=== PATIENT | female | born 1970 | race Caucasian/White ===

== ENCOUNTER 2016-08-05 20:20 | Emergency (ER) | payer BC ==
[2016-08-05] MEDS ORDERED: traMADol HCl 50 MG TAB ONE (20:54)
--- NOTE | 2016-08-05 21:53 | ERRECORD ---
[facility] EMERGENCY RECORD HPI SHOULDER (20:53 JLOY) CHIEF COMPLAINT: Patient presents for evaluation of Pt with a few weeks of right shoulder pain. Started on top of shoulder but now reaching down the side to mid upper arm. Hurts to move and lift. No distal symptoms. No Neuro symptoms. Pt remembers falling and catching herself with her right arm overhead a little while before this started. HISTORIAN: History provided by patient. MECHANISM OF INJURY: Known mechanism, Mechanism of injury: Body motion. LOCATION: Symptoms are generalized. QUALITY: Pain is dull in nature. TIME COURSE: Gradual onset of symptoms, Symptoms are worsening, are constant. ASSOCIATED WITH: No associated decreased range of motion, No associated decreased use, No associated distal neuro complaint, No associated elbow pain, No associated hand pain, No associated swelling, No associated wrist pain, No associated weakness distal to injury. EXACERBATED BY: Patient's condition exacerbated by movement. RELIEVED BY: Patient's condition relieved by rest. ROS (20:55 JLOY) CONSTITUTIONAL: Historian denies chills, denies fever. MUSCULOSKELETAL: Historian denies back pain, denies deformity, reports injury, denies neck pain. SKIN: Historian denies rash. NEUROLOGIC: Historian denies paralysis, denies paresthesias, denies sensory changes. PAST MEDICAL HISTORY MEDICAL HISTORY: Flu vaccine not up to date, Tetanus not up to date, Pneumococcal vaccine not up to date, Notes: anemia, Past medical history includes gastrointestinal disease, gastroesophageal reflux disease, Past medical history includes genitourinary history, urinary tract infection, Past medical history includes history of obesity, Past medical history includes neurological disease, migraine headaches, Hypothyriodism. (20:36 LK[facility]) FEMALE SURGICAL HISTORY: Surgical history of cholecystectomy, Surgical history of section, Surgical history of gastric bypass. (20:36 [facility]) PSYCHIATRIC HISTORY: Psychiatric history includes, anxiety, bipolar disorder, depression, Notes: RECENTLY DX WITH BIPOLAR 6 MONTHS AGO. (20:36 [facility]) SOCIAL HISTORY: Patient drinks socially, rarely, Patient is a former drug user, Drug history notes: "OVER 18 YEARS AGO", Patient is a former tobacco user, smoked cigarettes, Patient quit smoking more than 10 years ago, Lives at home, alone. (20:36 [facility]) NOTES: Nursing records reviewed, Agree with nursing records. (20:57 JLOY) &a-1R&a+25V*p+0X*[id number]*c202B*c15G*c2P*p-0X&a-25V&a+1R Name: Giselle Gudino : 1970 F45 MedRec: [id number] AcctNum: [id number] Prepared: FriAug 05, 2016 21:10 by Interface Page 1 of 3 pMD [facility] EMERGENCY RECORD KNOWN ALLERGIES Levaquin levofloxacin (Unconfirmed) CURRENT MEDICATIONS levothyroxine: TABLET : Strength - 175 mcg : ORAL Patient Dose: 1 tab(s) Oral once a day (in the morning). (20:31 [facility]) lithium carbonate: CAPSULE : Strength - 300 mg : ORAL Patient Dose: 300 mg Oral 2 times a day. (20:32 [facility]) SEROquel: TABLET : Strength - 100 mg : ORAL Patient Dose: 1 tab(s) Oral once a day (at bedtime). (20:32 [facility]) VITAL SIGNS (20:33 [facility]) VITAL SIGNS: BP: 119/67, Pulse: 56, Resp: 18, Temp: 97.6 (Oral), Pain: 5, O2 sat: 100 on Room Air, Time: 08/05/2016 20:33. PHYSICAL EXAM (20:56 [facility]) CONSTITUTIONAL: Vital Signs Reviewed, Patient appears non toxic, Patient alert and oriented to person, place and time. EYES: Eye exam included findings of eyelids normal to inspection, Pupils equally round and reactive to light, Conjunctiva normal. NECK: Neck exam included findings of normal range of motion, no tenderness. RESPIRATORY CHEST: Respiratory exam included findings of no respiratory distress, Chest exam included findings of chest movement symmetrical. BACK: Back exam included findings of normal inspection, range of motion normal, no tenderness. UPPER EXTREMITY: Right clavicle exam normal, Right shoulder exam included findings of, TTP mild-mod right AC joint. Most severe tenderness over ant shoulder. Positive empty can sign., Left shoulder unaffected, Right upper arm exam normal, Right elbow exam normal, Right forearm exam normal, Right wrist exam normal, Right hand exam normal. NEURO: [place] coma scale 15, Neuro exam findings include patient oriented to person, place and time, Speech normal. SKIN: Skin exam included findings of skin warm, dry, and normal in color, no rash. PSYCHIATRIC: Normal affect. MEDICATION ADMINISTRATION SUMMARY Drug Name: traMADol, Dose Ordered: 50 mg, Route: Oral, Status: Ordered, Time: 20:50 08/05/2016, Detailed record available in &a-1R&a+25V*p+0X*[id number]*c202B*c15G*c2P*p-0X&a-25V&a+1R Name: Giselle Gudino : 1970 5 MedRec: [id number] AcctNum: [id number] Prepared: FriAug 05, 2016 21:10 by Interface Page 2 of 3 pMD [facility] EMERGENCY RECORD Medication Service section. PROBLEM LIST No recorded problems DIAGNOSIS (20:52 JABIER) FINAL: PRIMARY: RIGHT shoulder pain. PRESCRIPTION (20:51 JANETTE) traMADol: TABLET : 50 mg : ORAL : Quantity: 1 Unit: tab(s) Route: ORAL Schedule: every 8 hours PRN Dispense: 20 May substitute. Refills: No Refills . NOTES: No Refills. DISPOSITION PATIENT: Disposition Type: Discharge, Disposition: *Discharge Home. (20:52 JABIER) Patient left the department. (21:07 BRE) Michaud: JABIER=MD Camden, Hunter MA=EVLEIA Tijerina, Tamara &a-1R&a+25V*p+0X*[id number]*c202B*c15G*c2P*p-0X&a-25V&a+1R Name: Giselle Gudino : 1970 5 MedRec: [id number] AcctNum: [id number] Prepared: FriAug 05, 2016 21:10 by Interface Page 3 of 3 pMD MTDD
--- NOTE | 2016-08-05 21:57 | PICIS ---
[facility] EMERGENCY RECORD TRIAGE (20:31 LK) TRIAGE NOTES: RIGHT SHOULDER PAIN RADIATING DOWN TO ELBOW. STATES ITS BEEN HURTING "ABOUT A MONTH". UNKNOWN CAUSE. (20:31 LK) PATIENT: NAME: Giselle Gudino, AGE: 45, GENDER: female, : Fri1970, TIME OF GREET: FriAug 05, 2016 20:22, PREFERRED LANGUAGE: Thai, ETHNICITY: Not or , ECODE BILLING MAP: [facility], SSN: [id number], Zip Code: [address], KG WEIGHT: [phone], PHONE: , , , PERSON ID: [id number], PCP: MD Elena Jacques. (20:31 [facility]) COMPLAINT: RT SHOULDER/ARM PAIN,1 MONTH,. (20:31 [facility]) ADMISSION: URGENCY: 4 Non Urgent, ADMISSION SOURCE: Home, TRANSPORT: CAR, BED: ER -05. (20:31 [facility]) PAIN: Patient complains of pain described as, on a scale 0-10 patient rates pain as 5, Location RIGHT SHOULDER, Pain is constant, Onset was 1 MONTH, Notes: RANGES FROM SHARP, SHOOTING TO DULL. (20:36 [facility]) IMMUNIZATIONS: Flu vaccine not up to date, Tetanus not up to date, Pneumococcal vaccine not up to date. (20:36 [facility]) SIRS SCORING: Heart Rate 55-109 (0), Temp range 96.8-101.1 (0), respiratory rate 12-24 (0), Latest WBC 3-14.9 (0), Mental Status altered: no (0). (20:36 [facility]) TRIAGE SCREENING: Patient denies suicidal ideation, Patient denies presence of domestic violence. (20:36 [facility]) TREATMENTS IN PROGRESS: Treatments given Prehospital: NONE. (20:36 [facility]) PROVIDERS: TRIAGE NURSE: Tamara Tijerina RN. (20:31 [facility]) PREVIOUS VISIT ALLERGIES: Levaquin. (20:31 [facility]) Levaquin. (20:36 [facility]) KNOWN ALLERGIES Levaquin levofloxacin (Unconfirmed) CURRENT MEDICATIONS levothyroxine: TABLET : Strength - 175 mcg : ORAL Patient Dose: 1 tab(s) Oral once a day (in the morning). (20:31 [facility]) lithium carbonate: CAPSULE : Strength - 300 mg : ORAL Patient Dose: 300 mg Oral 2 times a day. (20:32 [facility]) SEROquel: TABLET : Strength - 100 mg : ORAL Patient Dose: 1 tab(s) Oral once a day (at bedtime). (20:32 [facility]) &a-1R&a+25V*p+0X*j1485A*c202B*c15G*c2P*p-0X&a-25V&a+1R Name: Giselle Gudino : 1970 F45 MedRec: [id number] AcctNum: [id number] Prepared: FriAug 05, 2016 21:17 by Interface Page 1 of 4 pMD [facility] EMERGENCY RECORD VITAL SIGNS (20:33 [facility]) VITAL SIGNS: BP: 119/67, Pulse: 56, Resp: 18, Temp: 97.6 (Oral), Pain: 5, O2 sat: 100 on Room Air, Time: 08/05/2016 20:33. ORDER DETAILS Order Name: Miscellaneous Nurse Order(s), Status: Done, Time: 20:56 08/05/2016, User: [facility], - Ordered for: MD Hannah Joshua, - Entered by: MD Hannah Joshua - FriAug 05, 2016 20:50, - Quantity: 1. MEDICATION ADMINISTRATION SUMMARY Drug Name: traMADol, Dose Ordered: 50 mg, Route: Oral, Status: Ordered, Time: 20:50 08/05/2016, Detailed record available in Medication Service section. MEDICATION SERVICE (20:50 [facility]) traMADol: Order: traMADol (tramadol HCl) - Dose: 50 mg : Oral Ordered by: Hunter Hannah MD Entered by: Hunter Hannah MD FriAug 05, 2016 20:50 , Acknowledged by: Tamara Tijerina RN FriAug 05, 2016 20:55. HPI SHOULDER (20:53 [facility]) CHIEF COMPLAINT: Patient presents for evaluation of Pt with a few weeks of right shoulder pain. Started on top of shoulder but now reaching down the side to mid upper arm. Hurts to move and lift. No distal symptoms. No Neuro symptoms. Pt remembers falling and catching herself with her right arm overhead a little while before this started. HISTORIAN: History provided by patient. MECHANISM OF INJURY: Known mechanism, Mechanism of injury: Body motion. LOCATION: Symptoms are generalized. QUALITY: Pain is dull in nature. TIME COURSE: Gradual onset of symptoms, Symptoms are worsening, are constant. ASSOCIATED WITH: No associated decreased range of motion, No associated decreased use, No associated distal neuro complaint, No associated elbow pain, No associated hand pain, No associated swelling, No associated wrist pain, No associated weakness distal to injury. EXACERBATED BY: Patient's condition exacerbated by movement. RELIEVED BY: Patient's condition relieved by rest. ROS (20:55 [facility]) CONSTITUTIONAL: Historian denies chills, denies fever. MUSCULOSKELETAL: Historian denies back pain, denies deformity, reports injury, denies neck pain. SKIN: Historian denies rash. &a-1R&a+25V*p+0X*k1906C*c202B*c15G*c2P*p-0X&a-25V&a+1R Name: Giselle Gudino : 1970 F45 MedRec: [id number] AcctNum: [id number] Prepared: FriAug 05, 2016 21:17 by Interface Page 2 of 4 D [facility] EMERGENCY RECORD NEUROLOGIC: Historian denies paralysis, denies paresthesias, denies sensory changes. PAST MEDICAL HISTORY MEDICAL HISTORY: Flu vaccine not up to date, Tetanus not up to date, Pneumococcal vaccine not up to date, Notes: anemia, Past medical history includes gastrointestinal disease, gastroesophageal reflux disease, Past medical history includes genitourinary history, urinary tract infection, Past medical history includes history of obesity, Past medical history includes neurological disease, migraine headaches, Hypothyriodism. (20:36 [facility]) FEMALE SURGICAL HISTORY: Surgical history of cholecystectomy, Surgical history of section, Surgical history of gastric bypass. (20:36 [facility]) PSYCHIATRIC HISTORY: Psychiatric history includes, anxiety, bipolar disorder, depression, Notes: RECENTLY DX WITH BIPOLAR 6 MONTHS AGO. (20:36 [facility]) SOCIAL HISTORY: Patient drinks socially, rarely, Patient is a former drug user, Drug history notes: "OVER 18 YEARS AGO", Patient is a former tobacco user, smoked cigarettes, Patient quit smoking more than 10 years ago, Lives at home, alone. (20:36 [facility]) NOTES: Nursing records reviewed, Agree with nursing records. (20:57 JL) PHYSICAL EXAM (20:56 JL) CONSTITUTIONAL: Vital Signs Reviewed, Patient appears non toxic, Patient alert and oriented to person, place and time. EYES: Eye exam included findings of eyelids normal to inspection, Pupils equally round and reactive to light, Conjunctiva normal. NECK: Neck exam included findings of normal range of motion, no tenderness. RESPIRATORY CHEST: Respiratory exam included findings of no respiratory distress, Chest exam included findings of chest movement symmetrical. BACK: Back exam included findings of normal inspection, range of motion normal, no tenderness. UPPER EXTREMITY: Right clavicle exam normal, Right shoulder exam included findings of, TTP mild-mod right AC joint. Most severe tenderness over ant shoulder. Positive empty can sign., Left shoulder unaffected, Right upper arm exam normal, Right elbow exam normal, Right forearm exam normal, Right wrist exam normal, Right hand exam normal. NEURO: [place] coma scale 15, Neuro exam findings include patient oriented to person, place and time, Speech normal. SKIN: Skin exam included findings of skin warm, dry, and normal in color, no rash. PSYCHIATRIC: Normal affect. &a-1R&a+25V*p+0X*l7423O*c202B*c15G*c2P*p-0X&a-25V&a+1R Name: Giselle Gudino : 1970 F45 MedRec: [id number] AcctNum: [id number] Prepared: FriAug 05, 2016 21:17 by Interface Page 3 of 4 pMD [facility] EMERGENCY RECORD EVENTS TRANSFER: Triage to Emergency Emergency Room -05. (FriAug 05, 2016 20:31 [facility]) Removed from Emergency Emergency Room -05. (21:07 [facility]) PROBLEM LIST No recorded problems DIAGNOSIS (20:52 JL) FINAL: PRIMARY: RIGHT shoulder pain. DISPOSITION PATIENT: Disposition Type: Discharge, Disposition: *Discharge Home. (20:52 JL) Patient left the department. (21:07 [facility]) INSTRUCTION (20:52 [facility]) DISCHARGE: SHOULDER SPRAIN. FOLLOWUP: MD Elena Jacques, Family Practice, [facility], [address] [place] [address], [facility] [address], , Follow up with Primary Care Physician in 7-10 days. PRESCRIPTION (20:51 [facility]) traMADol: TABLET : 50 mg : ORAL : Quantity: 1 Unit: tab(s) Route: ORAL Schedule: every 8 hours PRN Dispense: 20 May substitute. Refills: No Refills . NOTES: No Refills. IMAGING (21:12 [facility]) *DISCHARGE INSTRUCTIONS RECEIPT: Image captured from scanner. *SUPPLY CHARGE SHEET: Image captured from scanner. ADMIN (20:57 [facility]) DIGITAL SIGNATURE: MD Hannah Joshua. Michaud: JABIER=MD Hannah Joshua [facility]=EVELIA Tijerina, Tamara &a-1R&a+25V*p+0X*[id number]*c202B*c15G*c2P*p-0X&a-25V&a+1R Name: TereseGiselle : 1970 F45 MedRec: [id number] AcctNum: [id number] Prepared: FriAug 05, 2016 21:17 by Interface Page 4 of 4 pMD [facility] MEDICATION RECONCILIATION You were seen in the Emergency Department on: FriAug 05, 2016 KNOWN ALLERGIES Levaquin levofloxacin (Unconfirmed) HOME MEDICATIONS CONTINUE PRESCRIBED levothyroxine : TABLET : Strength - 175 mcg : ORAL Continue as prescribed Patient had been takin tab(s) Oral once a day (in the morning). lithium carbonate : CAPSULE : Strength - 300 mg : ORAL Continue as prescribed Patient had been takin mg Oral 2 times a day. SEROquel : TABLET : Strength - 100 mg : ORAL Continue as prescribed Patient had been takin tab(s) Oral once a day (at bedtime). PRESCRIPTIONS (1) &a-1R&a+25V*p+0X*k9719Y*c202B*c15G*c2P*p-0X&a-25V&a+1R Name: Giselle Gudino : 1970 F45 MedRec: [id number] AcctNum: [id number] Prepared: FriAug 05, 2016 21:17 by Interface Henry FONTANA
== END 2016-08-05 21:06 | disposition home or self-care (01) ==
LOC: NAV ERS 20:20
DX: M25.511 Pain in right shoulder (principal); D64.9 Anemia, unspecified; K21.9 Gastro-esophageal reflux disease without esophagitis; E03.9 Hypothyroidism, unspecified; F31.9 Bipolar disorder, unspecified; Z87.891 Personal history of nicotine dependence; Z90.49 Acquired absence of other specified parts of digestive tract; Z79.899 Other long term (current) drug therapy
CPT/HCPCS: 99283

== ENCOUNTER 2016-08-16 08:55 | Outpatient (CLI) | payer BC ==
--- NOTE | 2016-08-19 07:25 | RAD ---
RIGHT SHOULDER 3 VIEWS: HISTORY: Right shoulder injury. FINDINGS: Glenohumeral alignment is maintained. There is no acute fracture, dislocation, or aggressive osseou s erosions apparent. IMPRESSION: No acute osseous abnormalities are demonstrated. POS: [facility]
== END 2016-08-16 08:56 | disposition home or self-care (01) ==
LOC: NAV RAD 08:55
PROVIDERS: ATTEND Family Medicine
DX: M25.511 Pain in right shoulder (principal)